=== PATIENT | female | born 2000 | race Two or more races ===

== ENCOUNTER 2021-08-19 12:48 | Emergency (ER) | payer OTHER ==
[~2021-08-19] VITALS: Ht 160 cm; Wt 55.3 kg
[~2021-08-19 12:48] MED LIST: PANADOL EXTRA500 MG; TAMIFLU45 MG PO; [UNRECOGNIZED DRUG - OTHER]
[2021-08-19] MEDS ORDERED: ZOLOFT100 MG PO (12:57)
[2021-08-19] MEDS ORDERED: CLONAZEPAM0.5 MG PO (12:57)
[2021-08-19] MEDS ORDERED: OMEPRAZOLE20 MG PO (12:59)
[2021-08-19] MEDS ORDERED: INTEGRA PLUS C1 EACH PO (16:56)
[2021-08-19] MEDS ORDERED: SKELAGESIC PO (16:56)
== END 2021-08-19 17:32 ==
LOC: ER 12:48
DX: D64.9 Anemia, unspecified (principal); R53.1 Weakness

== ENCOUNTER 2022-01-06 17:30 | Emergency (ER) | payer OTHER ==
[~2022-01-06] VITALS: Ht 160 cm; Wt 55.8 kg
[~2022-01-06 17:30] MED LIST changes: +CLONAZEPAM0.5 MG PO; +INTEGRA PLUS C1 EACH PO; +OMEPRAZOLE20 MG PO; +SKELAGESIC PO; +ZOLOFT100 MG PO
[2022-01-06] MEDS ORDERED: [UNRECOGNIZED DRUG - OTHER] (18:05)
== END 2022-01-06 20:14 | disposition home or self-care (01) ==
LOC: ER 17:30
DX: U07.1 COVID-19 (principal)

== ENCOUNTER 2022-07-30 16:23 | Emergency (ER) | payer OTHER ==
[~2022-07-30] VITALS: Ht 160 cm; Wt 65.8 kg
[~2022-07-30 16:23] MED LIST changes: +ALLERGY RELIE15.8 ML NASAL; +ZITHROMAX500 MG PO; +ZYRTEC10 MG PO; +[UNRECOGNIZED DRUG - OTHER]
== END 2022-07-30 20:02 | disposition home or self-care (01) ==
LOC: ER 16:23
DX: M62.838 Other muscle spasm (principal); V49.9XXA Car occupant (driver) (passenger) injured in unspecified traffic accident, initial encounter; Y93.9 Activity, unspecified; Y92.9 Unspecified place or not applicable; Y99.9 Unspecified external cause status

== ENCOUNTER 2023-05-03 16:56 | Emergency (ER) | payer OTHER ==
[~2023-05-03] VITALS: Ht 152.4 cm; Wt 61.2 kg
[2023-05-03] MEDS ORDERED: ZOLOFT25 MG PO (17:59)
[2023-05-03] MEDS ORDERED: CLONAZEPAM1 MG PO (18:00)
[2023-05-03 19:25] LABS: HEMOGLOBIN 9.4 g/dL (12.0-15.00); MEAN CORPUSCULAR HEMOGLOBIN 20.9 pg (27.00-32.0); MEAN CORPUSCULAR HGB CONC 32.5 g/dl (32.0-36.0); PLATELET COUNT 327 K/uL (150-450); RED BLOOD COUNT 4.49 M/uL (4.00-6.00)
[2023-05-03 19:26] LABS: MEAN CELL VOLUME 64.6 fL (80.00-100.00); RED CELL DISTRIBUTION WIDTH 16.5 % (11.5-14.5)
[2023-05-03 19:38] LABS: ALBUMIN 3.8 gm/dL (3.4-5.0); BILIRUBIN TOTAL 0.56 mg/dL (0.3-1.2); CALCIUM 8.8 mg/dL (8.5-10.1); CREATININE SERUM 0.79 mg/dL (0.55-1.02); GFR 89.41; GLOBULINA 4.3 G/DL (2.4-3.5); POTASSIUM 3.24 mEq/L (3.5-5.1); TOTAL PROTEIN 8.1 gm/dL (6.4-8.2)
[2023-05-03] MEDS ORDERED: PEPCID AC20 MG PO (20:36)
[2023-05-03] MEDS ORDERED: ONDANSETRON ODT8 MG PO (20:36)
== END 2023-05-03 21:38 | disposition home or self-care (01) ==
LOC: ER 16:56
PROVIDERS: General Practice
DX: K52.9 Noninfective gastroenteritis and colitis, unspecified (principal); Z20.822 Contact with and (suspected) exposure to COVID-19

== ENCOUNTER 2023-06-02 11:44 | Emergency (ER) | payer OTHER ==
[~2023-06-02] VITALS: Ht 160 cm; Wt 61.2 kg
[~2023-06-02 11:44] MED LIST changes: +CLONAZEPAM1 MG PO; +ONDANSETRON ODT8 MG PO; +PEPCID AC20 MG PO; +ZOLOFT25 MG PO
[2023-06-02 15:03] LABS: MEAN CORPUSCULAR HGB CONC 31.8 g/dl (32.0-36.0); PLATELET COUNT 350 K/uL (150-450); RED BLOOD COUNT 4.45 M/uL (4.00-6.00); RED CELL DISTRIBUTION WIDTH 16.8 % (11.5-14.5)
[2023-06-02 15:10] LABS: HEMOGLOBIN 8.9 g/dL (12.0-15.00); MEAN CELL VOLUME 62.9 fL (80.00-100.00)
== END 2023-06-02 15:53 | disposition home or self-care (01) ==
LOC: ER 11:45
PROVIDERS: General Practice
DX: B34.9 Viral infection, unspecified (principal); R53.81 Other malaise; D64.9 Anemia, unspecified; Z20.822 Contact with and (suspected) exposure to COVID-19